=== PATIENT | male | born 1955 | race Caucasian/White ===

== ENCOUNTER → 2017-07-08 | Outpatient (CLI) | payer OTHER ==
[2017-07-08 07:41] LABS: ADD MAN DIFF? NO
[2017-07-08 07:54] LABS: BASO # 0.1 x10^3/uL (0.0-0.2); BASO % 1 % (0-3); EOS # 0.1 x10^3/uL (0.0-0.7); EOS % 2 % (0-3); HEMATOCRIT 45.3 % (39.0-53.0); HEMOGLOBIN 15.3 g/dL (13.0-17.5); LYMPH % 31 % (24-48); MEAN CORPUSCULAR HEMOGLOBIN 33 pg (25-35); MEAN CORPUSCULAR HGB CONC 34 g/dL (31-37); MEAN CORPUSCULAR VOLUME 97 fL (79-100); MONO # 0.5 x10^3/uL (0.0-1.1); MONO % 8 % (0-9); NEUT # 3.7 x10^3uL (1.8-7.7); NEUT % 59 % (31-73); PLATELET COUNT 268 x10^3/uL (140-400); RED BLOOD COUNT 4.67 x10^6/uL (4.30-5.70); RED CELL DISTRIBUTION WIDTH 13.4 % (11.5-14.5); WHITE BLOOD COUNT 6.3 x10^3/uL (4.0-11.0)
[2017-07-08 08:14] LABS: ALK PHOS 58 U/L (46-116); ALT (SGPT) 44 U/L (16-63); ANION GAP 10 (6-14); AST (SGOT) 41 U/L (15-37); BLOOD UREA NITROGEN 17 mg/dL (8-26); BUN/CREATININE RATIO 21 (6-20); CALCIUM 9.6 mg/dL (8.5-10.1); CARBON DIOXIDE 30 mmol/L (21-32); CHLORIDE 104 mmol/L (98-107); CHOLESTEROL 175 mg/dL (0-200); CREATININE 0.8 mg/dL (0.7-1.3); GFR 98.3; GLUCOSE 86 mg/dL (70-99); HDLC 72 mg/dL (40-60); LDLC 85 mg/dL (0-100); NON-HDL CHOLESTEROL 103 mg/dL (0-129); POTASSIUM 3.3 mmol/L (3.5-5.1); SODIUM 144 mmol/L (136-145); TOTAL BILIRUBIN 0.5 mg/dL (0.2-1.0); TRIGLYCERIDES 88 mg/dL (0-150); VLDLC 18 mg/dL (0-40)
[2017-07-08 08:16] LABS: CHOLESTEROL/HDL RATIO 2.4
[2017-07-08 08:23] LABS: THYROID STIM HORMONE (TSH) 3.674 uIU/mL (0.358-3.74)
[2017-07-08 08:48] LABS: PROSTATE SPECIFIC ANTIGEN 1.84 ng/mL (0.00-4.00)
== END | disposition home or self-care (01) ==
LOC: LAB 06:32
DX: Z12.5 Encounter for screening for malignant neoplasm of prostate (principal); I10 Essential (primary) hypertension; E03.9 Hypothyroidism, unspecified; N40.0 Benign prostatic hyperplasia without lower urinary tract symptoms; E78.5 Hyperlipidemia, unspecified
CPT/HCPCS: 36415; 80053; 80061; 84443; 85025; G0103

== ENCOUNTER → 2019-01-02 | Outpatient (CLI) | payer OTHER ==
[2019-01-02 07:51] LABS: BASO % 1 % (0-3); EOS # 0.1 x10^3/uL (0.0-0.7); EOS % 1 % (0-3); HEMATOCRIT 43.2 % (39.0-53.0); HEMOGLOBIN 14.7 g/dL (13.0-17.5); LYMPH # 1.4 x10^3/uL (1.0-4.8); LYMPH % 35 % (24-48); MEAN CORPUSCULAR HEMOGLOBIN 34 pg (25-35); MEAN CORPUSCULAR HGB CONC 34 g/dL (31-37); MEAN CORPUSCULAR VOLUME 99 fL (79-100); MONO # 0.4 x10^3/uL (0.0-1.1); MONO % 11 % (0-9); NEUT # 2.1 x10^3/uL (1.8-7.7); NEUT % 52 % (31-73); PLATELET COUNT 254 x10^3/uL (140-400); RED BLOOD COUNT 4.37 x10^6/uL (4.30-5.70); RED CELL DISTRIBUTION WIDTH 13.7 % (11.5-14.5)
[2019-01-02 08:03] LABS: ALBUMIN 3.7 g/dL (3.4-5.0); ALBUMIN/GLOBULIN RATIO 0.9 (1.0-1.7); GFR 75.7; POTASSIUM 3.3 mmol/L (3.5-5.1); TOTAL BILIRUBIN 0.5 mg/dL (0.2-1.0); TOTAL PROTEIN 7.6 g/dL (6.4-8.2)
[2019-01-02 08:04] LABS: CHOLESTEROL/HDL RATIO 2.2
== END | disposition home or self-care (01) ==
LOC: LAB 07:04
PROVIDERS: ATTEND Family Medicine
DX: N40.0 Benign prostatic hyperplasia without lower urinary tract symptoms (principal); E03.9 Hypothyroidism, unspecified; I10 Essential (primary) hypertension; E78.5 Hyperlipidemia, unspecified; E55.9 Vitamin D deficiency, unspecified
CPT/HCPCS: 36415; 80053; 80061; 82306; 84153; 84443; 85025; G0103

== ENCOUNTER → 2019-02-06 | Outpatient (CLI) | payer OTHER ==
[2019-02-06 08:08] LABS: CALCIUM 9.6 mg/dL (8.5-10.1); GFR 75.5; POTASSIUM 3.7 mmol/L (3.5-5.1)
== END | disposition home or self-care (01) ==
LOC: LAB 07:37
PROVIDERS: ATTEND Family Medicine
DX: E87.6 Hypokalemia (principal)
CPT/HCPCS: 36415; 80048

== ENCOUNTER → 2020-05-12 | Outpatient (CLI) | payer OTHER ==
[2020-05-12 08:43] LABS: BASO % 1 % (0-3); EOS # 0.1 x10^3/uL (0.0-0.7); EOS % 2 % (0-3); HEMATOCRIT 40.9 % (39.0-53.0); HEMOGLOBIN 14.5 g/dL (13.0-17.5); LYMPH # 1.3 x10^3/uL (1.0-4.8); LYMPH % 28 % (24-48); MEAN CORPUSCULAR HEMOGLOBIN 34 pg (25-35); MEAN CORPUSCULAR HGB CONC 35 g/dL (31-37); MEAN CORPUSCULAR VOLUME 96 fL (79-100); MONO # 0.5 x10^3/uL (0.0-1.1); MONO % 11 % (0-9); NEUT # 2.8 x10^3/uL (1.8-7.7); NEUT % 59 % (31-73); PLATELET COUNT 268 x10^3/uL (140-400); RED BLOOD COUNT 4.28 x10^6/uL (4.30-5.70); WHITE BLOOD COUNT 4.8 x10^3/uL (4.0-11.0)
[2020-05-12 09:16] LABS: ALBUMIN 3.5 g/dL (3.4-5.0); ALBUMIN/GLOBULIN RATIO 0.9 (1.0-1.7); CALCIUM 9.9 mg/dL (8.5-10.1); GFR 75.2; TOTAL BILIRUBIN 0.5 mg/dL (0.2-1.0); TOTAL PROTEIN 7.4 g/dL (6.4-8.2)
[2020-05-12 09:18] LABS: CHOLESTEROL/HDL RATIO 3.9
[2020-05-12 09:27] LABS: POTASSIUM 2.9 mmol/L (3.5-5.1)
== END ==
LOC: LAB 08:15
PROVIDERS: ATTEND Family Medicine
DX: Z12.5 Encounter for screening for malignant neoplasm of prostate (principal); E03.9 Hypothyroidism, unspecified; I10 Essential (primary) hypertension; N40.0 Benign prostatic hyperplasia without lower urinary tract symptoms; E78.5 Hyperlipidemia, unspecified
CPT/HCPCS: 36415; 80053; 80061; 84443; 85025; G0103

== ENCOUNTER → 2021-09-04 | Outpatient (CLI) | payer MEDICARE ==
[~2021-09-04] MED LIST: ATOR40TA59 PO; BALS750C6 PO; FENO145T3 PO; GLUC1TAB69 PO; LEVO100T5 PO; LEVO5TAB29 PO; LISI1TAB39 PO; MELA10CA PO; METO50TA6 PO; POTA-121 PO; REGADENOSON 0.4 MG/5 ML DISP.SYRIN. IV ONE
--- NOTE | 2021-09-04 15:56 | RAD ---
MR#: [id number] Date of Study: 09/04/2021 Ordering Physician: VERONIKA HARRIS, Referring Physician: JUSTINA DUMONT Tech: PURA Soria ARRT (R) (N) APPROVED REPORT Test Type: Pharmacological Stress Nurse/Tech: Arlet Londono RN Test Indications: Dyspnea on exertion Cardiac History: HTN, LUCAS with lightheadedness Medications: See Electronic Medical Record Medical History: See Electronic Medical Record Resting ECG: SR Resting Heart Rate: 74 bpm Resting Blood Pressure: 130/79mmHg Pretest Chest Pain: None Nurse/Tech Notes Lungs CTA, S1S2 Consent: The procedure was explained to the patient in lay terms. Informed consent was witnessed. Jimmie eout was entered into [employer]. History and Stress Test performed by PURA Soria, PRESLEY (R) (N) Pharm. Details Pharmacologic stress testing was performed using 0.4mg per 5ml of regadenoson given intravenously ove r 7-10 seconds. Stress Symptoms Dyspnea POST EXERCISE Reason for Termination: Infusion complete Max HR: 119 bpm Max Blood Pressure: 133/78mmHg Blood Pressure response to exercise: Normal blood pressure response during stress. Heart Rate response to exercise: Normal Chest Pain: No. Arrhythmia: No. ST Change: No. INTERPRETATION Stress EKG Conclusion: Baseline EKG showed sinus rhythm. No ischemic changes at peak stress. No arr hythmias. Imaging Protocol IMAGE PROTOCOL: Rest Tc-99m/stress Tc-99m 1 day Rest: Stress: Viability: Radiopharm.Tc99m AdalmssepMy22c Sestamibi Dose10.4mCi 30mCi Img Date 09/04/2021 09/04/2021 Inj-Img Eveg26aav. 60min. Rest Admin Site:IV - Right AntecubitalAdministrator:PURA Soria ARRT (R)(N) Stress Admin Site: IV - Right AntecubitalAdministrator: RT Dania (R)(N) STRESS DATA End Diast. Vol.26.0mlAv. Heart Rate94.0bpm End Syst. Vol.1.0mlCO Index BSA2.3L/min Myocardial Mass67.0gEject. Ampfbhjv61.0% Stress Rates Pk. Fill Rate4.15EDV/secLVtime Pk. Fill 100.93msec Pk. Empty Rate6.98ESV/secLVtime Pk. Eject83.33msec 1/3 Pk. Fill2.35EDV/sec Stress Scores Regional WT0.00Summed WT2.00 Regional WM0.00Summed WM0.00 Study quality was good. Left Ventricular size was Normal at Rest and Stress. Lung uptake was . Left Ventricular ejection fraction is >80%. The rest and stress images show normal perfusion, normal contraction and thickening. LV Perf. Quant 17 Seg. SSS0.00 17 Seg. SRS3.00 17 Seg. SDS0.00 Stress Defect Extent (% LAD)0.00Rest Defect Extent (% LAD)0.00Rev. Defect Extent (% LAD)0.00 Stress Defect Extent (% LCX) 0.00Rest Defect Extent (% LCX)23.80Rev. Defect Extent (% LCX)0.00 Stress Defect Extent (% RCA)0.00Rest Defect Extent (% RCA)0.00Rev. Defect Extent (% RCA)0.00 Stress Defect Extent (% FAHAD)0.00Rest Defect Extent (% FAHAD)4.60Rev. Defect Extent (% FAHAD)0.00 Conclusion 1. Regadenoson cardioisotope stress test did not show any evidence of ischemia or infarct. 2. Normal left ventricular systolic function with ejection fraction calculated at >80%. 3. Low risk for cardiac events. Signed by : Veronika Harris, Electronically Approved : 09/04/2021 15:55:54
--- NOTE | 2021-09-04 16:56 | CARD ---
MR#: [id number] Date of Study: 09/04/2021 Ordering Physician: VERONIKA STEPHENS, Referring Physician: VERONIKA STEPHENS, Dajuan: OPAL [facility] APPROVED REPORT EXAM: Two-dimensional and M-mode echocardiogram with Doppler and color Doppler. Other Information Quality : AverageHR: 86bpm Rhythm : NSRTechnically limited study due to LUNG INTERFERENCE INDICATION Dyspnea RISK FACTORS Hypertension 2D DIMENSIONS RVDd3.1 (2.9-3.5cm)Left Atrium(2D)2.8 (1.6-4.0cm) IVSd1.3 (0.7-1.1cm)Aortic Root(2D)3.6 (2.0-3.7cm) LVDd3.5 (3.9-5.9cm)LVOT Diameter1.9 (1.8-2.4cm) PWd1.1 (0.7-1.1cm)LVDs2.4 (2.5-4.0cm) FS (%) 29.3 %SV28.4 ml LVEF(%)57.2 (>50%) Aortic Valve AoV Peak James.137.9cm/sAoV VTI31.3cm AO Peak GR.7.6mmHgLVOT Peak James.79.0cm/s AO Mean GR.4mmHgAVA (VMAX)1.65cm2 Mitral Valve MV E Vmlshhct41.4cm/sMV DECEL DERJ877yx MV A Pscszowm71.7cm/sE/A Ratio1.0 Pulmonary Valve PV Peak Invmwsme66.0cm/s Tricuspid Valve TR P. Uwzkrjnt540fh/sRAP XFHEMQDK6guAg TR Peak Gr.25thJsSXFW92yeCe Pulmonary Vein S1 Imrcboty81.7cm/sD2 Kbcunnzg40.0cm/s PVa [id number] LEFT VENTRICLE The left ventricle is normal size. The left ventricle systolic function normal. The ejection fraction is 55 to 60%. No regional wall motion abnormalities noted. The left ventricular diastolic function i s normal. No left ventricle thrombus noted on this study. There is no ventricular septal defect visua lized. There is no left ventricular aneurysm. There is no mass noted in the left ventricle. RIGHT VENTRICLE The right ventricle is normal size. There is normal right ventricular wall thickness. The right ventr icular systolic function is normal. ATRIA The left atrium size is normal. The right atrium size is normal. The interatrial septum is intact wit h no evidence for an atrial septal defect or patent foramen ovale as noted on 2-D or Doppler imaging. AORTIC VALVE The aortic valve is trileaflet. No aortic regurgitation is present. There is no aortic valvular steno sis. There is no aortic valvular vegetation. MITRAL VALVE The mitral valve is normal in structure and function. There is no evidence of mitral valve prolapse. There is no mitral valve stenosis. Doppler and Color-flow revealed trace mitral regurgitation. TRICUSPID VALVE The tricuspid valve is normal in structure and function. Doppler and Color Flow revealed mild tricusp id regurgitation. The pulmonary artery systolic pressure is estimated at 38 mmHg. There is no tricusp id valve prolapse or vegetation. There is no tricuspid valve stenosis. PULMONIC VALVE The pulmonary valve is normal in structure and function. There is no pulmonic valvular regurgitation. There is no pulmonic valvular stenosis. GREAT VESSELS The aortic root is mildly enlarged. The ascending aorta is normal in size. The pulmonary artery is no rmal. The IVC is normal in size and collapses >50% with inspiration. PERICARDIAL EFFUSION There is no pleural effusion. There is no evidence of significant pericardial effusion. Critical Notification Critical Value: No <Conclusion> The left ventricle systolic function normal. The ejection fraction is 55 to 60%. No regional wall motion abnormalities noted. Trace mitral regurgitation. Mild tricuspid regurgitation. The pulmonary artery systolic pressure is estimated at 38 mmHg. There is no evidence of significant pericardial effusion. Signed by : Veronika Stephens, Electronically Approved : 09/04/2021 16:56:05
== END ==
LOC: NM 08:09
PROVIDERS: ATTEND Internal Medicine Cardiovascular Disease
DX: I07.1 Rheumatic tricuspid insufficiency (principal); R06.00 Dyspnea, unspecified; I77.819 Aortic ectasia, unspecified site
CPT/HCPCS: 78452; 93017; 93306; A9500; J2785; C8929

== ENCOUNTER 2021-09-07 07:29 | Outpatient (CLI) | payer MEDICARE ==
[~2021-09-07] VITALS: Ht 172.7 cm; Wt 86.0 kg
[2021-09-07] MEDS ORDERED: LIDOCAINE 2%/EPI 1:100,000 20 ML VIAL. ONE (07:43)
[2021-09-07 07:44] VITALS: BP 120/78
[2021-09-07] MEDS ORDERED: GLUC1TAB69 PO (07:45)
[2021-09-07] MEDS ORDERED: LEVO5TAB29 PO (07:45)
[2021-09-07] MEDS ORDERED: METO50TA6 PO (07:45)
[2021-09-07] MEDS ORDERED: POTA-121 PO (07:45)
[2021-09-07] MEDS ORDERED: LEVO100T5 PO (07:45)
[2021-09-07] MEDS ORDERED: FENO145T3 PO (07:45)
[2021-09-07] MEDS ORDERED: LISI1TAB39 PO (07:45)
[2021-09-07] MEDS ORDERED: BALS750C6 PO (07:45)
[2021-09-07] MEDS ORDERED: ATOR40TA59 PO (07:45)
[2021-09-07] MEDS ORDERED: MELA10CA PO (07:45)
[2021-09-07] MEDS ORDERED: LIDOCAINE 2%/EPI 1:100,000 20 ML VIAL. IJ ONE (08:30)
[2021-09-07 08:53] VITALS: BP 132/81
--- NOTE | 2021-09-07 09:01 | CARD ---
MR#: [id number] Date of Study: 09/07/2021 Ordering Physician: VERONIKA STEPHENS, Referring Physician: VERONIKA STEPHENS, Tech: APPROVED REPORT EXAM Implantation of Medtronic Linq reveal loop recorder INDICATIONS Recurrent syncope of uncertain etiology IMPLANTED DEVICES An informed consent was obtained from patient. Patient was brought to the procedure suite and her le ft chest and shoulder were prepped and draped in the usual fashion. 20 mL of 2% lidocaine was infilt rated into the skin and subcutaneous tissues for local anesthesia. An incision was made in the left third intercostal space 1 inch from midsternal line and using the introducer and deployer provided wi th the kit a Med[employer]onic Reveal Linq loop recorder serial number [id number] was placed in the subcutane ous tissue. Hemostasis was secured. Patient tolerated the procedure well. There were no immediate complications. CONCLUSION Successful implantation of Medtronic Reveal Linq loop recorder for recurrent syncope of uncertain desirae ology Signed by : Veronika Stephens, Electronically Approved : 09/07/2021 09:00:18
--- NOTE | 2021-09-07 09:50 | NUR ---
incision site care reviewed with patient. Patient discharged to home
== END 2021-09-07 08:55 | disposition home or self-care (01) ==
LOC: CCL 07:29
PROVIDERS: ATTEND Internal Medicine Cardiovascular Disease
DX: R55 Syncope and collapse (principal); I10 Essential (primary) hypertension; E78.00 Pure hypercholesterolemia, unspecified; E03.9 Hypothyroidism, unspecified; Z79.899 Other long term (current) drug therapy; Z98.890 Other specified postprocedural states
CPT/HCPCS: 33285; C1764; J3490